=== PATIENT | male | born 1995 | race Caucasian/White ===

== ENCOUNTER 2019-05-29 21:36 | Emergency (ER) | payer MEDICAID, OTHER ==
[~2019-05-29] VITALS: Ht 175.3 cm; Wt 72.7 kg
[2019-05-29 21:45] VITALS: BP 118/83
[2019-05-29] MEDS ORDERED: proparacaine 0.5% ophthalmic drops 15ml EACHEYE ONE (21:55)
[2019-05-30] MEDS ORDERED: bacitracin/polymyxin B 15 GM ointment TP SCH (00:20)
[2019-05-30] MEDS ORDERED: acetaminophen 325mg tablet PO ONE (00:20)
[2019-05-30] MEDS ORDERED: BACI1PAC2 TP (00:20)
[2019-05-30] MEDS ORDERED: ibuprofen tablet 400 MG TABLET PO ONE (00:20)
[2019-05-30] MEDS ORDERED: BACI3.5O5 TOP (00:47)
[2019-05-30] MEDS ORDERED: POLYMYXN B LEFTEYE ONE (00:50)
[2019-05-30] MEDS ORDERED: NEOMYCIN SULF LEFTEYE ONE (00:50)
[2019-05-30] MEDS ORDERED: [UNRECOGNIZED DRUG - OTHER] LEFTEYE ONE (00:50)
[2019-05-30] MEDS ORDERED: BACITRACIN LEFTEYE SCH (00:50)
== END 2019-05-30 01:33 | disposition home or self-care (01) ==
LOC: ER 21:36
DX: T15.02XA Foreign body in cornea, left eye, initial encounter (principal); F17.200 Nicotine dependence, unspecified, uncomplicated; F12.90 Cannabis use, unspecified, uncomplicated; F10.99 Alcohol use, unspecified with unspecified alcohol-induced disorder; Z79.899 Other long term (current) drug therapy; W22.8XXA Striking against or struck by other objects, initial encounter; Y93.89 Activity, other specified; Y92.89 Other specified places as the place of occurrence of the external cause; Y99.8 Other external cause status; Y90.9 Presence of alcohol in blood, level not specified
CPT/HCPCS: 65222; 99284

== ENCOUNTER 2019-06-17 14:15 | Emergency (ER) | payer MEDICAID ==
[~2019-06-17] VITALS: Ht 175.3 cm; Wt 72.7 kg
[~2019-06-17 14:15] MED LIST: BACI1PAC2 TP; BACI3.5O5 TOP; LIDOcaine 1% W/epiNEPHrine 1:100,000 20ml vial ONE
[2019-06-17] MEDS ORDERED: TETanus/Pertussis (Acell)/Diphther VAC/PF (Tdap-Adult) 0.5ml syringe IM ONE (14:35)
--- NOTE | 2019-06-17 15:52 | NUR ---
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
[2019-06-17 15:53] VITALS: BP 115/67
== END 2019-06-17 15:55 | disposition home or self-care (01) ==
LOC: ER 14:15
DX: S51.812A Laceration without foreign body of left forearm, initial encounter (principal); F12.90 Cannabis use, unspecified, uncomplicated; Z79.2 Long term (current) use of antibiotics; W26.8XXA Contact with other sharp object(s), not elsewhere classified, initial encounter; Y93.89 Activity, other specified; Y92.89 Other specified places as the place of occurrence of the external cause; Y99.8 Other external cause status
CPT/HCPCS: 12002; 73090; 90471; 99283

== ENCOUNTER 2025-07-20 17:02 | Emergency (ER) | payer MEDICAID ==
[~2025-07-20] VITALS: Ht 175.3 cm; Wt 69.2 kg
[~2025-07-20 17:02] MED LIST changes: +BACI1PAC TP; -BACI1PAC2 TP; -LIDOcaine 1% W/epiNEPHrine 1:100,000 20ml vial ONE
[2025-07-20 17:07] VITALS: BP 117/86; PULSE 60; RESP 18; TEMP 96.7; O2SAT 99
--- NOTE | 2025-07-20 17:38 | RADIOLOGY REPORT ---
Indication: Pain LEFT Technique: DI FINGER(S)FINGERS Comparison: None FINDINGS/IMPRESSION: No radiographic evidence for acute fracture or dislocation. Soft tissue edema surrounding the 2nd digit.
[2025-07-20] MEDS ORDERED: CEPH-585 PO (19:28)
[2025-07-20] MEDS ORDERED: SULF1TAB49 PO (19:28)
--- NOTE | 2025-07-20 19:29 | Physician Documentation ---
History of Present Illness ~ Chief Complaint: Finger pain Stated Complaint: SWELLING ON ARM Time Seen by MD: 17:15 Primary Medical Doctor: None HPI Right-hand dominant male who suffered a puncture wound to the dorsal aspect of the proximal left index finger. Patient popped a lesion in develop secondary infection over 48-72 hours with lymphangitis. He has no restricted range of motion no reported fever. Tetanus within 5 years: Yes Medication Reconciliation Allergies: Coded Allergies: No Known Allergies (Unverified , 07/20/25) Scheduled Bacitracin/Polymyxin B Sulfate (Bacitracin-Polymyxin Ointment), 1 APPLIC TP QID Bacitracin/Polymyxin B Sulfate (Bacitracin-Polymyxin Eye Oint), 1 APPLIC TOP Q3H Cephalexin*Monohydrate* (Keflex*), 1 CAP PO TID Sulfamethoxazole/Trimethoprim (Bactrim Ds Tablet), 1 TAB PO Q12H Past Medical History Past Medical History: No Pertinent History Past Surgical History: no surgical history Alcohol Use: Occasionally Drug Use: marijuana Lives In: Home Occupation: employed Review of Systems All Other Systems at this time: Reviewed and Negative Musculoskeletal The finger injury Physical Exam Vital Signs: RN Vital Signs have been reviewed: Yes, Temperature: 96.7, Source: Temporal, Heart Rate: 60, Respiratory Rate: 18, BP: 117/86, Pulse Oximetry: 99, Weight: 69.200 Oxygen Flow Rate: 0 General Appearance: alert, WD/WN, mild distress EENT: PERRL/EOMI Respiratory: no respiratory distress Chest: no accessory muscle use Back: normal inspection Elbow/Forearm: normal inspection Wrist: normal inspection Hand: soft tissue tenderness Digit: infection, soft tissue tenderness Digit Single puncture site of the dorsum of the left index proximal phalanx Nail: normal inspection Nail Bed: normal inspection Distal Function: normal pulse Skin: other (Erythema of the of angitis of the dorsum of the left index finger not involving the joint) Neurologic: oriented x4 Psychiatric: normal mood/affect Progress Results/Orders Results/Orders Orders - CASSY PENALOZA PAC Finger(S) (07/20/25 17:19) Completed Orders - CASSY PENALOZA PAC Finger(S) (07/20/25 17:19) Vital Signs 07/20/25 17:07 Temp 96.7 Pulse 60 Resp 18 B/P (MAP) 117/86 Pulse Ox 99 O2 Flow Rate 0 Medical Decision Making Additional information obtaine: N/A Findings 30-year-old male right-hand dominant who is examination history consistent with infection secondary to a puncture wound to the distal portion of his left index finger. No obvious abscess requiring incision and drainage. Early tenosynovit is requiring antibiotic coverage. Remains with full range of motion of the D IP and PIP joint. General Diff Dx:Considerations: Include: Contusion, Fracture Shoulder Diff Dx:Consideration: Include: Other (Noncontributory) Elbow Diff Dx:Considerations: Include: Other (Noncontributory) Wrist Diff Dx:Considerations: Include: Other (Noncontributory) Hand Diff Dx:Considerations: Include: Other (Noncontributory) Finger Diff Dx:Considerations: Include: Cellulitis, Contusion, Subungual hematoma Departure Disposition: HOME / SELF CARE / HOMELESS Impression: Primary Impression: Finger infection Additional Impression: Tenosynovitis Condition: Stable Discharge Instructions: Tenosynovitis Additional Instructions: Please continue with warm moist soaks with Epsom salts two to 3 times a day and begin antibiotics as directed. Take ibuprofen or Tylenol for discomfort. Return to the emergency department for reduced range of motion fever or greater redness. Thank you for visiting [facility]. Referrals: NO PRIMARY CARE PROVIDER (PCP) Prescriptions Cephalexin*Monohydrate* (Keflex*) 500 Mg Capsule 1 CAP PO TID, #30 CAP Prov: CASSY PENALOZA 07/20/25 Sulfamethoxazole/Trimethoprim (Bactrim Ds Tablet) 800 Mg-160 Mg Tablet 1 TAB PO Q12H for 10 Days, #20 TAB Prov: CASSY PENALOZA 07/20/25 Education Educated: Patient, Family Educated regarding: diagnosis, treatment, prognosis, need for follow up Signature Scribe Signature: . Attestation: . CASSY PENALOZA Jul 20, 2025 19:29
== END 2025-07-20 19:36 | disposition home or self-care (01) ==
LOC: ER 17:02
DX: L08.9 Local infection of the skin and subcutaneous tissue, unspecified (principal); M65.942 Unspecified synovitis and tenosynovitis, left hand; F12.90 Cannabis use, unspecified, uncomplicated; Z79.899 Other long term (current) drug therapy; Z72.89 Other problems related to lifestyle
CPT/HCPCS: 73140; 99283